=== PATIENT | female | born 1970 | race Caucasian/White ===

== ENCOUNTER 2022-11-14 09:07 | Emergency (ER) | payer OTHER, SELFPAY ==
[2022-11-14 09:14] VITALS: BP 150/92; PULSE 87; RESP 16; TEMP 36.2; O2SAT 97; BMI 28.2
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
[2022-11-14 10:41] VITALS: BP 150/92; PULSE 87; RESP 16; TEMP 36.2; O2SAT 97
== END 2022-11-14 10:43 | disposition home or self-care (01) ==
PROVIDERS: Emergency Provider Physician Assistant
DX: Z04.1 Encounter for examination and observation following transport accident (principal); V89.2XXA Person injured in unspecified motor-vehicle accident, traffic, initial encounter
CPT/HCPCS: 71110; 72220; 99283

== ENCOUNTER 2023-03-28 12:14 | Emergency (ER) | payer OTHER, SELFPAY ==
[2023-03-28 12:22] VITALS: BP 162/118; PULSE 83; RESP 16; TEMP 37.2; O2SAT 97
--- NOTE | 2023-03-28 12:47 | XRR_ITS ---
PROCEDURE INFORMATION: Exam: XR Left Hand Exam date and time: 03/28/2023 12:53 PM Age: 52 years old Clinical indication: Injury or trauma; Other: Thumb crushed by or table; Work related; Crushing; Finger; Left; Additional info: Left thumb injury. , Primarily the left thumb. TECHNIQUE: Imaging protocol: Radiologic exam of the left hand. Views: 3 or more views. COMPARISON: No relevant prior studies available. FINDINGS: Bones/joints: Mild degenerative changes 1st CMC joint and 1st MCP joint. No fracture, dislocation or malalignment demonstrated. Soft tissues: Unremarkable. XR/XR hand LT min 3V* [id number] IMPRESSION: No acute bony abnormalities.
--- NOTE | 2023-03-28 12:50 | ED_ITS ---
HPI - Extremity Problem General: Chief complaint: Extremity Injury, Upper Stated complaint: left hand thumb trauma Time Seen by Provider: 03/28/23 12:21 Source: patient Mode of arrival: ambulatory Limitations: no limitations History of Present Illness: This 52-year-old female presents to the ER for evaluation of left thumb injury. 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 When she pushed on the table, it gives out and smashed the left thumb between the fracture table and the table bar. Patient sustained injury primarily to the left thumb. She denies any other injuries. She took ibuprofen after the incident. Currently, she declined additional pain medications. This is a Workmen's Comp. case. Incident happened around noon. Associated symptoms: Deny chest pain Review of Systems Const: Denies: chills, body aches or change in appetite Eyes: Denies: change in vision or eye discharge ENMT: Denies: throat pain, dental pain or nasal discharge Card: Denies: chest pain or lightheadedness : Denies: dysuria Musc: Reports: extremity pain (Left thumb injury and pain) Neuro: Denies: headache(s) or weakness in extremities Psych: Denies: depression Vishal/Lymph: Denies: easy bruising All/Imm: Denies: urticaria, tongue swelling or facial swelling PFSH ED PFSH: Medical History No pertinent family history Surgical History No significant past surgical history Physical Exam Const: COMMON NORMALS: no acute distress, patient oriented x3, no limitations and alert HENMT: COMMON NORMALS: normocephalic HEAD & SCALP: normocephalic Eye: COMMON NORMALS: EOMs intact bilaterally Chest: COMMONS NORMALS: normal inspection of the chest Resp: COMMON NORMALS: normal respiratory effort, No retractions, No use of accessory muscles and clear to auscultation bilaterally AUSCULTATION: clear to auscultation bilaterally Cardio: COMMON NORMALS: regular rate, regular rhythm and No murmurs present (Cardio) RATE: regular rate RHYTHM: regular rhythm Extremity: GENERAL: Yes normal exam except as noted OTHER: There is mild swelling and tenderness of the left thumb especially around the nailbed. Very small subungual hematoma. No distal neurovascular deficit. Neuro: COMMON NORMALS: patient oriented x3 and no focal motor deficits SENSORIUM/ORIENTATION: Yes alert Course Vital Signs: Vital signs: Vital Signs Temperature 99.0 F 03/28/23 12:22 Pulse Rate 83 03/28/23 12:22 Respiratory Rate 16 03/28/23 12:22 Blood Pressure 162/118 03/28/23 12:22 Pulse Oximetry 97 03/28/23 12:22 Oxygen Delivery Me thod Room Air 03/28/23 12:22 MDM - Extremity (Nontraumatic) Medical Decision Making Medical decision making: Patient presents to the ER for evaluation of left thumb contusion that occurred while she was working. X-ray is negative for fracture/dislocation. However, she sustained a contusion of the thumb with minimal subungual hematoma. She will be treated conservatively. She will follow-up with her primary care physician for reevaluation. Return instructions provided. Lab Data Radiology Impressions Hand X-Ray 03/28/23 12:47 IMPRESSION: No acute bony abnormalities. Laboratory Results Urine Opiates Screen Negative ng/mL (Negative) 03/28/23 13:02 Ur Barbiturates Screen Negative ng/mL (Negative) 03/28/23 13:02 Ur Phencyclidine Scrn Negative ng/mL (Negative) 03/28/23 13:02 Ur Amphetamines Screen Negative ng/mL (Negative) 03/28/23 13:02 U Benzodiazepines Scrn Negative ng/mL (Negative) 03/28/23 13:02 Urine Cocaine Screen Negative ng/mL (Negative) 03/28/23 13:02 U Marijuana (THC) Screen Negative ng/mL (Negative) 03/28/23 13:02 Discharge Plan Discharge Patient Disposition: Home Clinical Impression: Contusion of left thumb Condition: Stable Prescriptions: No Action cyclobenzaprine 10 mg tablet 10 mg PO BID PRN (Reason: muscle spasm) Qty: 20 0RF Discharge Orders: Discharge ED (Routine); Ordered 03/28/23 Ordered By: Tammy Willard Discharge Diet: Usual diet Discharge Activity: Resume usual activity Patient Instructions: Opioid Safety, Pain Management Activity Restrictions/Additional Instructions: You may apply ice to the affected thumb for 10 to 15 minutes, 2-3 times a day. Take [id number] Tylenol or Motrin as needed for pain. Follow-up with your primary care provider in a week for reevaluation. Return with new or worsening symptoms. Coding Level of Care Code ED E Learning Specialist for Evelin Quintana
[2023-03-28 13:24] LABS: Amphetamines Screen Urine Negative (Negative); Barbiturates Screen Urine Negative (Negative); Benzodiazepines Screen Urine Negative (Negative); Cocaine Screen Urine Negative (Negative); Opiate Screen Urine Negative (Negative); PCP Screen Urine Negative (Negative); THC Screen Urine Negative (Negative)
--- NOTE | 2023-04-01 14:11 | DCPLANNER ---
Addendum entered by Donna Green 04/02/23 11:31: manager account management spoke with patient and she declined Original Note: manager account management called patient due to no primary care physician - unable to speak with patient at this time.
== END 2023-03-28 13:53 | disposition home or self-care (01) ==
PROVIDERS: Emergency Provider Family Medicine
DX: S60.112A Contusion of left thumb with damage to nail, initial encounter (principal); W23.0XXA Caught, crushed, jammed, or pinched between moving objects, initial encounter; Y92.254 Theater (live) as the place of occurrence of the external cause
CPT/HCPCS: 73130; 80306; 99283

== ENCOUNTER 2023-04-06 10:02 | Outpatient (CLI) | payer SELFPAY ==
[2023-04-06 10:30] LABS: HF Add Manual Diff No
[2023-04-06 10:35] LABS: Basophils # 0.1 10^3/uL (0.0-0.1); Basophils % 0.6 %; Eosinophils # 0.2 10^3/uL (0.0-0.8); Eosinophils % 2.3 %; Hematocrit 42.8 % (37.0-47.0); Lymphocytes # 2.8 10^3/uL (0.8-4.8); Lymphocytes % 29.3 %; Mean Corpuscular HGB Conc 32.7 g/dL (30.0-36.0); Mean Corpuscular Hemoglobin 31.1 pg (28.0-34.0); Mean Corpuscular Volume 95.1 fl (81-99); Mean Platelet Volume 11.9 fL (7.4-10.4); Monocytes # 0.6 10^3/uL (0.2-0.9); Monocytes % 6.6 %; Neutrophils # 5.74 10^3/uL (1.8-7.7); Neutrophils % 60.9 %; Nucleated Red Blood Cells % 0 %; Platelet Count 247 10^3/cmm (130-400); Red Cell Distribution Width 11.9 % (12.1-15.1); White Blood Count 9.4 10^3/uL (4.0-10.0)
[2023-04-06 11:03] LABS: Estmated Average Glucose 114; Hemoglobin A1C 5.6 % (4.0-6.0)
[2023-04-06 11:18] LABS: 25 Hydroxy Vitamin D 24 ng/mL (30-100); Alanine Aminotransferase 24 U/L (0-33); Albumin Level 4.4 g/dL (3.5-5.2); Alkaline Phosphatase 92 U/L (35-105); Anion Gap 15.1 (5-19); Aspartate Amino Transferase 19 U/L (0-32); Blood Urea Nitrogen 17 mg/dL (6-20); Calcium 9.1 mg/dL (8.5-10.5); Carbon Dioxide 25 mmol/L (22-29); Chloride 106 mmol/L (98-107); Chol HDL Ratio 6.03 mg/dL (0.0-4.40); Cholesterol 205 mg/dL (0-200); Globulin 2.6 g/dL (1.3-4.6); Glomerular Filtration Rate 88.2 mL/min (90-130); Glucose 97 mg/dL (65-115); HDL Cholesterol 34 mg/dL (60-100); LDL Cholesterol Calculated 95 mg/dL (50-129); LDL HDL Ratio 2.79 RATIO (0.00-3.22); Osmolality Calculated 295 mOsm/kg (285-295); Potassium 4.1 mmol/L (3.5-5.1); Sodium 142 mmol/L (136-145); Total Bilirubin 0.2 mg/dL (0.15-1.2); Triglycerides 380 mg/dL (0-150)
== END 2023-04-06 10:03 | disposition home or self-care (01) ==
LOC: LAB 10:04
PROVIDERS: PCP Family Medicine; Visit Provider Dermatology
DX: Z01.89 Encounter for other specified special examinations (principal)
CPT/HCPCS: 36415

== ENCOUNTER 2024-01-06 11:34 | Outpatient (CLI) | payer OTHER, SELFPAY ==
[2024-01-06 15:05] LABS: Hepatitis B Surface Antigen Non-Reactive (Nonreactive); Hepatitis C Virus Antibody Non-Reactive (Nonreactive)
[2024-01-06 15:06] LABS: HIV 1 & 2 Antigen Non-Reactive (Non-Reactiv)
[2024-01-06 15:07] LABS: HIV 1 & 2 Antibody Non-Reactive (Non-Reactiv)
== END 2024-01-06 11:35 | disposition home or self-care (01) ==
PROVIDERS: PCP Family Medicine; Visit Provider Family Medicine
DX: S61.219A Laceration without foreign body of unspecified finger without damage to nail, initial encounter (principal); W46.1XXA Contact with contaminated hypodermic needle, initial encounter; Y93.89 Activity, other specified; Y92.238 Other place in hospital as the place of occurrence of the external cause; Y99.0 Civilian activity done for income or pay
CPT/HCPCS: 86803; 87340; 87806

== ENCOUNTER → 2024-05-12 09:51 | Outpatient (BNVA) | payer OTHER, SELFPAY | DX: Z13.6 Encounter for screening for cardiovascular disorders (principal); E55.9 Vitamin D deficiency, unspecified | CPT/HCPCS: 80053; 80061; 82306; 84443; 85025 ==

== ENCOUNTER → 2024-06-30 11:54 | Outpatient (BNVA) | payer OTHER, SELFPAY | DX: M25.50 Pain in unspecified joint (principal) | CPT/HCPCS: 86160; 86162; 86235; 86255; 86376; 86431 ==

== ENCOUNTER 2024-08-23 13:27 | Outpatient (CLI) | payer OTHER, SELFPAY ==
[2024-08-23 14:45] LABS: Erythrocyte Sedimentation Rate 12 mm/hr (0-15)
[2024-08-23 15:06] LABS: C Reactive Protein 3.1 mg/L (0.0-4.9)
[2024-08-24 15:48] LABS: Cyclic Citrullinated Peptide <16 UNITS
== END 2024-08-23 13:28 | disposition home or self-care (01) ==
LOC: LAB 13:28
DX: M25.50 Pain in unspecified joint (principal)
CPT/HCPCS: 85651; 86140; 86200

== ENCOUNTER 2025-03-09 10:03 | Outpatient (CLI) | payer OTHER, SELFPAY ==
--- NOTE | 2025-03-09 10:14 | XR_ITS ---
WS: [id number] Exam: XR hip LT 2-3V wo/w pel* [id number] Date/Time of Exam: 03/09/2025 10:17 AM Reason For Exam: left hip pain No acute fracture. Mild DJD of the joint compartment. Normal soft tissues. The visualized pelvis is unremarkable. XR/XR hip LT 2-3V wo/w pel* [id number] IMPRESSION: 1. Mild degenerative changes of the LEFT hip. No fracture or other significant finding.
== END 2025-03-09 10:04 | disposition home or self-care (01) ==
DX: M16.12 Unilateral primary osteoarthritis, left hip (principal)
CPT/HCPCS: 73502

== ENCOUNTER → 2025-09-07 11:20 | Outpatient (BNVA) | payer OTHER, SELFPAY | PROVIDERS: Visit Provider Specialist | DX: Z53.9 Procedure and treatment not carried out, unspecified reason (principal) | CPT/HCPCS: 77002 ==

== ENCOUNTER → 2025-09-28 11:36 | Outpatient (BNVA) | payer OTHER, SELFPAY | PROVIDERS: Visit Provider Specialist | DX: R39.9 Unspecified symptoms and signs involving the genitourinary system (principal) | CPT/HCPCS: 77002; 81000; 87086 ==